=== PATIENT | female | born 1985 | race Hispanic/Latino ===

== ENCOUNTER 2022-06-27 10:44 | Emergency (ER) | payer SELFPAY ==
[~2022-06-27] VITALS: Ht 152.4 cm; Wt 90.7 kg
[2022-06-27 11:34] LABS: STREPTOCOCCUS GRP A ANTIGEN NEGATIVE (NEGATIVE)
[2022-06-27 11:42] LABS: INFLUENZAE A&B ANTIGEN (RAPID) NEGATIVE (NEGATIVE)
[2022-06-27] MEDS ORDERED: VALTREX500 MG PO (12:30)
== END 2022-06-27 12:38 | disposition home or self-care (01) ==
LOC: ER 11:10
DX: K12.1 Other forms of stomatitis (principal); Z88.8 Allergy status to other drugs, medicaments and biological substances; Z20.822 Contact with and (suspected) exposure to COVID-19
CPT/HCPCS: 83518; 87070; 87400; 99283; U0002